=== PATIENT | female | born 1975 | race Caucasian/White ===

== ENCOUNTER 2017-01-23 08:11 | Inpatient (IN) | payer OTHER ==
[2017-01-24 14:25] VITALS: BMI 39.0
[2017-01-24] MEDS ORDERED: cefOXitin IV 2 gm in Dextrose 2 GM/50 ML BAG IVPB ONE ×2 (14:32→14:38)
[2017-01-24] MEDS ORDERED: Sodium Citrate/Citric Acid 15 ml Sol PO ONE (14:32)
[2017-01-24] MEDS ORDERED: Sodium Citrate/Citric Acid 15 ml Sol ONE (14:38)
[2017-01-24] MEDS ORDERED: Oxytocin 20 units in LR 2,000 ML IV ONE (14:38)
[2017-01-24] MEDS ORDERED: Lactated Ringer's 1,000 ML IV SCH (14:45)
--- NOTE | 2017-01-24 15:02 | OBADHP ---
Datetime: 01/24/2017 14:06 Admit Comment, IP Provider: This is a private patient of Dr. Giorgi Pereira 42 y.o. , LMP unsure, SRINIVAS 01/31/17, EGA 39 weeks, here for elective repeat C/S with BTL. (+) AFM; denies LOF, VB; (+) occ contractions x 1-2 weeks. care: Dr. Pereira; UTI x 1. No o ther issues P Ob: 1992, 41 weeks, C/S, female, 5lb 10oz, (severe) pre-eclampsia - [facility], [place]. 2014, 2015 , VTOP x 2, first trimester; no complications. 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 (+) H/O fibroids - first diagnosed 2011. No H/O abnormal Pap; no h/o STIs PMH: Pre-eclampsia; no interval HTN. PSH: D_C x 2; C/S, 1994; open myomectomy (Dr. Vo), 2011 Allergies: erythromycin - by history. Meds: PNV - QD Soc Hx: denies tobacco, illicit drug or EtOH use. x 3 years; together 7 years. 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 Fam Hx: Mother alive 55 y.o. - bone cancer. Father age 39 - AIDS. No other fam h/o CA. P.E.: as above. WD in NAD. Awake, alert, oriented to time, person and place. Pleasant and coope rative. Assessment: 42 y.o. P1021, 39w, previous C/S for elective repeat with BTL; h/o fibroids. Category 1 tracing. Patient last ate 2100 hours 01/23/17. Clinically stable. Plan: 1) Admit 2) NPO 3) Admission labs 4) continuous EFM 5) Abdominal prep 6) rivera to gravity 7) Notify anesthesia 8) Notify peds 9) Mefoxin, information technology internship to O.R. 10) Patient information technology internship to O.R. - Dr. Pereira is aware Pelvic Type - PN: Adequate Extremities - PN: Normal Abdomen - PN: Normal Back - PN: Normal Breast - PN: Not Done Lungs - PN: Normal Heart - PN: Normal Thyroid - PN: Not Done Neurologic - PN: Normal HEENT - PN: Normal General - PN: Normal FHR - Baseline A Provider: 135 Contraction Comments Provider: irregular Comments, ACOG Physical Exam: Abdomen: Gravid. Soft, non tender. Fundal height 39 cm. Healed Pfanne nstiel scar Extremities: 1+ pitting edema of lower extremity, bilaterally. No calf tenderness, bilaterally All other systems reviewed and are negative Gestation - Est Wks by US: 39.0 IP Hx Assessment: The History has been Reviewed and is Current Vital Signs Provider: Reviewed; Within Normal Limits IP Chief Complaint: Scheduled Section NICHD Variability Prov Fetus A: Moderate 6-25bpm NICHD Accel Fetus A IP Provider: [id number] FHR Category Provider Fetus A: Category I NICHD Decel Fetus A IP Provider: None Dilatation, Provider: deferred Genitourinary Exam: Not Done DTRs - PN: Not Done IP Adm Impression: Term, intrauterine IP Admit Plan: Admit to unit; Initiate Section protocol
[2017-01-24 15:10] LABS: BASO % 0.3 % (0.0-2.0); EOS # 0.1 K/uL (0.0-0.7); EOS % 0.7 % (0.0-4.0); HEMATOCRIT 34.9 % (34.0-47.0); LYMPH # 3.1 K/uL (1.0-4.3); LYMPH % 22.8 % (20.0-40.0); MEAN CORPUSCULAR HEMOGLOBIN 28.8 pg (27.0-31.0); MEAN CORPUSCULAR HGB CONC 33.5 g/dL (33.0-37.0); MEAN PLATELET VOLUME 8.8 fL (7.2-11.7); MONO # 1.1 K/uL (0.0-0.8); MONO % 8.1 % (0.0-10.0); RED CELL DISTRIBUTION WIDTH 13.6 % (11.5-14.5); WHITE BLOOD COUNT 13.5 K/uL (4.8-10.8)
[2017-01-24 15:24] LABS: CHLORIDE 102 mmol/L (98-107)
[2017-01-24] MEDS ORDERED: Morphine 1 mg/ml preservative-free Inj(Duramorph) ONE (15:24)
[2017-01-24 15:25] LABS: POTASSIUM 3.5 mmol/L (3.6-5.2); SODIUM 131 mmol/L (132-148)
[2017-01-24 15:27] LABS: ALB/GLOB RATIO 1.5 (1.0-2.1); ALKALINE PHOSPHATASE 108 U/L (38-126); AST/SGOT 18 U/L (14-36); BILIRUBIN,TOTAL 1.1 mg/dL (0.2-1.3); BLOOD UREA NITROGEN 8 mg/dL (7-17); CARBON DIOXIDE 19 mmol/L (22-30); GFR AFRICAN-AMERICAN > 60; GLUCOSE,RANDOM 63 mg/dL (65-105); TOTAL PROTEIN 5.7 g/dL (6.3-8.3)
[2017-01-24 15:28] LABS: ALT/SGPT 23 U/L (9-52); CALCIUM 8.3 mg/dl (8.6-10.4)
[2017-01-24 15:32] LABS: RBC URINE 5 /hpf (0-3); URINE BACTERIA RARE (<OCC); URINE BILIRUBIN NEGATIVE (NEGATIVE); URINE BLOOD NEGATIVE (NEGATIVE); URINE COLOR Yellow (YELLOW); URINE GLUCOSE (UA) NORMAL (Normal); URINE KETONE 1+ mg/dL (NEGATIVE); URINE LEUKOCYTE ESTERASE 3+ Leu/uL (Negative); URINE PROTEIN NEGATIVE (NEGATIVE); WBC URINE 284 /hpf (0-5)
--- NOTE | 2017-01-24 17:49 | OBDS ---
DELIVERY PERSONNEL Delivery Doctor: Claudia Pereira MD Scrub Nurse: Ebonie Sorenson Pole Framer Machine: Summer South RN Anesthesiologist: Virgil Tan MD MATERNAL INFORMATION Delivery Anesthesia: Spinal Medications in Delivery: Pitocin Estimated Blood Loss (ml): 500 Placenta Cultured: No Maternal Complications: None RN Comments: Rc/section to a live baby boy, attended to by Dr. Mosley and Gee Steward RN. 9:9, Skin to Skin done. Provider Comments: Multiple fibroids over 10 fibroids Otherwise R C/S _ BTL was un-remarkable LABOR SUMMARY EDC: 01/31/2017 00:00 No. Babies in Womb: 1 Attempted: No Labor Anesthesia: None LABOR INFORMATION Oxytocin: N/A Group B Beta Strep: Positive Antibiotics # of Doses: 1 Antibiotics Time of Last Dose: 1500 Steroids Given: None Reason Steroids Not Administered: Not Applicable MEMBRANES Membranes Rupture Method: Artificial Rupture of Membranes: 01/24/2017 16:23 Length of Rupture (hrs): 0.03 Amniotic Fluid Color: Clear Amniotic Fluid Amount: Moderate Amniotic Fluid Odor: Normal STAGES OF LABOR Stage 3 hrs: 0 Stage 3 min: 1 CSECTION DELIVERY Primary Indication: Repeat Elective Secondary Indication: N/A CSection Urgency: Elective CSection Incidence: Repeat Labor: No Labor Elective: Elective CSection Incision: Lower Uterine Transverse CSection Incision Other: inverted "T" incision Sterilization Procedure: Susan Uterine Closure: Single-layer closure BABY A INFORMATION Infant Delivery Date/Time: 01/24/2017 16:25 Method of Delivery: Born in Route : No : N/A Forceps: N/A Vacuum Extraction: N/A Shoulder Dystocia : No SHOULDER DYSTOCIA BABY A Infant Delivery Date/Time: 01/24/2017 16:25 PRESENTATION/POSITION BABY A Presentation: Cephalic Cephalic Presentation: Vertex Vertex Position: Left Occipital Anterior Breech Presentation: N/A PLACENTA INFORMATION BABY A Placenta Delivery Time : 01/24/2017 16:26 Placenta Method of Delivery: Manual Removal Placenta Status: Delivered SCORES BABY A Heart Rate 1 min: >100 bpm Resp Effort 1 min: Good Cry Reflex Irritability 1 min: Cough or Sneeze or Pulls Away Muscle Tone 1 min: Active Motion Color 1 min: Body [place], Extremities Blue SCORE 1 MIN: 9 Heart Rate 5 min: >100 bpm Resp Effort 5 min: Good Cry Reflex Irritability 5 min: Cough or Sneeze or Pulls Away Muscle Tone 5 min: Active Motion Color 5 min: Body [place], Extremities Blue SCORE 5 MIN: 9 INFANT INFORMATION BABY A Gestational Age at Delivery: 39.0 Gestational Status: Term Outcome : Liveborn Condition : Stable Infant Sex: Male IDENTIFICATION/MEDS BABY A ID Band Number: [id number] ID Band Location: Right Arm; Left Leg Sensor Applied: Yes Sensor Number: [id number] Sensor Location : Cord Clamp Vitamin K Given : Not Given Erythromycin Given: Not Given WEIGHT/LENGTH BABY A Infant Birthweight (gms): 3640 Weight (lb): 8 Infant Weight (oz): 0 Length Inches: 20.25 Infant Length cms: 51.4 CORD INFORMATION BABY A No. Cord Vessels: 3 Nuchal Cord : N/A Nuchal Cord Other: n/a True Knot: 0 Cord Blood Taken: Yes Suction: Mouth; Nose ASSESSMENT BABY A Infant Complications: None Physical Findings at Delivery: Within Normal Limits Infant Respirations: Appears Normal Collator/ALS Called : No Care By: Dr. Mosley and Leana Transferred To: Remains with Mother BABY B INFORMATION Born in Route : No : N/A Forceps : N/A PRESENTATION/POSITION BABY B Presentation : Cephalic INFANT INFORMATION BABY B Gestational Age at Delivery: 39.0
[2017-01-24] MEDS: Lactated Ringer's 1,000 ML IV SCH (19:58)
[2017-01-25] MEDS: Simethicone 80 mg Chewtab PO SCH ×5 (00:24→23:24)
[2017-01-25] MEDS: Lactated Ringer's 1,000 ML IV SCH (04:39)
[2017-01-25 09:12] LABS: HEMATOCRIT 33.3 % (34.0-47.0); MEAN CELL VOLUME 85.3 fL (81.0-99.0); MEAN CORPUSCULAR HEMOGLOBIN 28.9 pg (27.0-31.0); MEAN CORPUSCULAR HGB CONC 33.9 g/dL (33.0-37.0); MEAN PLATELET VOLUME 8.5 fL (7.2-11.7); RED CELL DISTRIBUTION WIDTH 13.2 % (11.5-14.5); WHITE BLOOD COUNT 13.8 K/uL (4.8-10.8)
--- NOTE | 2017-01-25 18:03 | OBPPN ---
Datetime: 01/25/2017 17:59 PP Breasts Prov: Normal PP Heart Prov: Normal PP Lungs Prov: Normal PP Abdomen/Uterus Prov: Normal PP Lochia Prov: Normal PP Vulva/Perineum Prov: Normal PP CVA Tenderness Prov: Normal PP Extremities Prov: Normal PP C/S Incision Prov: Normal PP Progress Prov: Normal PP Impression Prov: Normal progression PP Plan Prov: Continue present management PP Progress Note Prov: POD #1 No C/O VS stable Wound Clean P: Advance diet IP PP Procedures: Tubal Ligation
[2017-01-25] MEDS: Amoxicillin-Clav 875-125 mg Tab PO SCH (20:15)
--- NOTE | 2017-01-26 03:47 | OP ---
PROCEDURE DATE: 01/24/2017 NATURE OF OPERATION: Repeat section and bilateral tubal ligation. ATTENDING SURGEON: Giorgi Pereira MD ADJUSTMENT SUPERVISOR: Christoph Becerril MD DIRECTOR CREDIT RISK: . KIND OF ANESTHESIA: Spinal. PREOPERATIVE DIAGNOSES: She is 39 to 40 weeks' , previous section, multiparity. POSTOPERATIVE DIAGNOSES: She is 39 to 40 weeks' , previous section, multiparity with multiple fibroid uterus, live male, 8 pounds, 9 and 9 and vertex. ESTIMATED BLOOD LOSS: 500 mL. DESCRIPTION OF PROCEDURE: The patient was placed in supine position after the spinal anesthesia. The abdomen was prepped and draped for a Pfannenstiel incision. A Pfannenstiel incision was made between the symphysis pubis and the umbilicus and was carried down to rectus fascia. The fascia was cleaned and incised the length of the incision. The recti were retracted laterally. The transversalis fascia identified and mobilized superiorly. The peritoneum was then incised the length of the incision. The vesicouterine fold of the visceral peritoneum was identified and incised transversely between the round ligaments. The bladder flap was developed and mobilized inferiorly by blunt dissection. A transverse incision was made into the anterior wall of the lower uterine segment and extended laterally toward the round ligaments. Membranes were incised and the amniotic fluid was cleared. The inverted T uterine incision was made and the patient was delivered from the OT position of a living male , in good condition at exactly 4:25 p.m. on 01/24/2017, 9 and 9. Presenting part was floating, the placenta was on the posterior wall near the fundus, and membranes and placenta were completely removed manually. The uterus was closed in two layers with continued suture of chromic number 1 gut. First layer including myometrium, second layer imbricating the myometrium. The bladder flap was reattached with continuous suture of chromic number 2-0 catgut on an atraumatic needle. The uterus was well contracted. The tubal ligation was performed. First, the left fallopian tube was grasped with a Chevak clamps. The right fallopian tube was held with Chevak clamps at the avascular area of mesosalpinx, trough fixed with a 0 chromic pass through the mesosalpinx and the tube was tied on both side followed by double ligation. Portions of the tube above the ligature was cut. All bleeding point was checked and tied and cauterized. The left fallopian tube was similarly transfixed, ligated, and cut using the same suture. The was completed as usual. Peritoneum was sutured using 0 chromic continuous, recti muscle with a 0 chromic interrupted, fascia with 0 Vicryl suture continuous interlocking sutures, and subcutaneous tissue with number 2-0 plain suture was placed. The skin was closed with the christina, and the patient tolerated the procedure well in satisfactory condition. There were multiple fibroids with a varying sizes. The large one is about 5 to 6 cm, but multiple more than 10 fibroids noted. There were filmy pelvic adhesions was noted and lysed on the uterine wall. Giorgi Pereira MD
[2017-01-26] MEDS: Hydrocodone/Acetaminophen 5 mg /300 mg Tab PO PRN ×3 (06:43→22:03)
[2017-01-26] MEDS: Amoxicillin-Clav 875-125 mg Tab PO SCH ×2 (08:25→19:38)
[2017-01-26] MEDS: Simethicone 80 mg Chewtab PO SCH ×4 (09:36→22:03)
--- NOTE | 2017-01-26 10:09 | CP.PCM.CON ---
Past Patient History - Infectious Disease Hx of Infectious Diseases: None - Past Social History Smoking Status: Unknown If Ever Smoked - PSYCHIATRIC Hx Substance Use: No - SURGICAL HISTORY Hx Section: Yes - ANESTHESIA Hx Anesthesia: Yes Hx Anesthesia Reactions: No Hx Malignant Hyperthermia: No Meds Allergies/Adverse Reactions: Allergies Allergy/AdvReac Type Severity Reaction Status Date / Time erythromycin base Allergy RASH Verified 01/24/17 14:32 strawberry Allergy RASH Verified 01/24/17 14:32 - Medications Medications: Current Medications Acetaminophen/Hydrocodone Bitart (Vicodin 5 Mg-300 Mg) 1 tab PO Q6H PRN PRN Reason: Pain, moderate (4-7) Stop: 01/31/17 15:39 Last Admin: 01/26/17 06:43 Dose: 1 tab Amoxicillin/Clavulanate Potassium (Augmentin 875 Mg-125 Mg Tab) 1 tab PO Q12H [facility] Last Admin: 01/26/17 08:25 Dose: 1 tab Docusate Sodium (Colace) 100 mg PO BID [facility] Last Admin: 01/26/17 09:35 Dose: 100 mg Lactated Ringer's (Lactated Ringer's) 1,000 mls @ 125 mls/hr IV .Q8H [facility] Last Admin: 01/25/17 04:39 Dose: 125 mls/hr Oxytocin (Pitocin 20 Units In Lr) 1,000 mls @ 125 mls/hr IV .Q8H [facility] PRN Reason: Protocol Ibuprofen (Motrin Tab) 600 mg PO Q4 PRN PRN Reason: Pain, Mild (1-3) Last Admin: 01/25/17 23:25 Dose: 600 mg Simethicone (Mylicon Chew Tab) 80 mg PO QID [facility] Last Admin: 01/26/17 09:36 Dose: 80 mg Zolpidem Tartrate (Ambien) 5 mg PO HS PRN PRN Reason: Insomnia Results - Vital Signs Recent Vital Signs: Last Vital Signs Temp 98.8 F 01/26/17 08:00 Pulse 84 01/26/17 08:00 Resp 18 01/26/17 08:00 BP 125/75 01/26/17 08:00 Pulse Ox 97 01/26/17 08:00 - Labs Result Diagrams: 01/25/17 09:08 01/24/17 14:45
--- NOTE | 2017-01-26 18:41 | OBPPN ---
Datetime: 01/26/2017 18:38 PP Pain Prov: Within normal limits PP Breasts Prov: Normal PP Lungs Prov: Normal PP Abdomen/Uterus Prov: Normal PP Lochia Prov: Normal PP Vulva/Perineum Prov: Normal PP CVA Tenderness Prov: Normal PP Extremities Prov: Normal PP C/S Incision Prov: Normal PP Progress Prov: Normal PP Impression Prov: Normal progression PP Plan Prov: Continue present management PP Progress Note Prov: POD #2 No C/O VS Stable Wound Clean P: Home in AM if stable IP PP Procedures: Tubal Ligation Datetime: 01/26/2017 07:29 PP Heart Prov: Normal PP Comments Phys Exam Prov: Abdomen: Uterus is firm and below the umbilicus. Incision C/D/I
--- NOTE | 2017-01-26 18:44 | OBDCSUM ---
Datetime: 01/26/2017 18:41 Discharged to, Provider: Home Follow up at, Provider: Dr. Pereira Disch Instr Activity: May be up for meals; May Shower Disch Instr Diet: Regular Discharge Diagnosis, Provider: Term Delivered Follow up in weeks, Provider: 2 weeks Disch Referrals: None Disch Activity Restrictions: No exercising; No lifting; No driving; Minimize walking; Minimize stair -climbing; No sexual activity; Nothing in vagina - [place], tampons, douche Discharge Comment, Provider: Home in AM if stable Contraception after Delivery: Tubal Ligation
[2017-01-27 00:33] VITALS: O2SAT 98
[2017-01-27] MEDS: Amoxicillin-Clav 875-125 mg Tab PO SCH (07:02)
[2017-01-27] MEDS ORDERED: Influenza Vaccine 60 mcg/0.5 mL SYR (4YR UP) IM ONE (10:00)
[2017-01-27] MEDS: Hydrocodone/Acetaminophen 5 mg /300 mg Tab PO PRN (10:52)
[2017-01-27] MEDS: Simethicone 80 mg Chewtab PO SCH (10:52)
[2017-01-27 12:17] VITALS: BP 124/70; PULSE 85; RESP 18
[2017-01-27 19:09] VITALS: TEMP 99
== END 2017-01-27 13:00 | disposition home or self-care (01) | DRG 371 ==
LOC: C.4D 01-24 14:14 → C.4M 01-24 19:48
PROVIDERS: ADMIT Obstetrics & Gynecology Gynecology; ATTEND Obstetrics & Gynecology Gynecology
PROC: 10D00Z1 Extraction of Products of Conception, Low, Open Approach (ICD-10-PCS; principal; 2017-01-24)
PROC: 0UL70ZZ Occlusion of Bilateral Fallopian Tubes, Open Approach (ICD-10-PCS; 2017-01-24)
DX: O34.211 Maternal care for low transverse scar from previous cesarean delivery (principal); D25.9 Leiomyoma of uterus, unspecified; O34.13 Maternal care for benign tumor of corpus uteri, third trimester; Z30.2 Encounter for sterilization; Z3A.39 39 weeks gestation of pregnancy; Z37.0 Single live birth